=== PATIENT | male | born 1955 | race Two or more races ===

== ENCOUNTER 2019-01-05 18:10 | Inpatient (IN) | payer OTHER ==
[~2019-01-05] VITALS: Ht 167.6 cm; Wt 90.3 kg
[2019-01-05 18:39] LABS: BASOPHILS % 0.6 % (0.0-2.0); EOSINOPHILS % 10.4 % (0.0-5.0); HEMOGLOBIN. 15.5 g/dL (14.0-18.0); LYMPHOCYTES % 34.2 % (20.0-50.0); MEAN CORPUSCULAR HEMOGLOBIN 31.7 pg (28.0-32.0); MEAN CORPUSCULAR VOLUME 94.4 fL (80.0-94.0); MEAN PLATELET VOLUME 9.8 fl (7.4-10.4); MONOCYTES % 7.7 % (2.0-8.0); NEUTROPHILS % 47.1 % (40.0-76.0); PLATELET 246 x1000/uL (130-400); RED BLOOD CELL COUNT 4.88 mill/uL (4.7-6.1); RED CELL DISTRIBUTION WIDTH 14.2 % (11.6-14.6)
[2019-01-05 18:46] LABS: INR 0.9; PROTHROMBIN TIME 9.7 sec (9.6-11.0)
[2019-01-05 18:47] LABS: CHLORIDE 106 mEq/L (98-107)
[2019-01-05 18:51] LABS: ETHANOL BLOOD < 10 mg/dL
[2019-01-05 18:54] LABS: LDL CHOLESTEROL 127 mg/dL (5-100)
[2019-01-05] MEDS ORDERED: ASPIRIN 325MG EC TABLET PO ONE (19:30)
[2019-01-05] MEDS ORDERED: CLOPIDOGREL 75MG TABLET PO ONE (19:30)
[2019-01-05] MEDS ORDERED: IOHEXOL-350 100 ML BOTTLE ONE (23:23)
[2019-01-06 00:18] LABS: CLARITY URINE CLEAR (CLEAR); COLOR URINE YELLOW (YELLOW); KETONES URINE TRACE (NEGATIVE); LEUKOCYTE ESTERASE URINE NEGATIVE (NEGATIVE); NITRITE URINE NEGATIVE (NEGATIVE); OCCULT BLOOD URINE NEGATIVE (NEGATIVE); PROTEIN URINE NEGATIVE (NEGATIVE); SPECIFIC GRAVITY URINE 1.038 (1.005-1.030)
[2019-01-06 00:26] LABS: *AMPHETAMINES SCREEN URINE NEGATIVE (NEGATIVE); *BARBITURATES SCREEN URINE NEGATIVE (NEGATIVE); *BENZODIAZEPINES SCREEN URINE NEGATIVE (NEGATIVE); *COCAINE SCREEN URINE NEGATIVE (NEGATIVE)
[2019-01-06 00:27] LABS: CANNABINOID URINE SCREEN NEGATIVE (NEGATIVE); METHADONE URINE SCREEN NEGATIVE (NEGATIVE); OPIATES URINE SCREEN NEGATIVE (NEGATIVE); PHENCYCLIDINE URINE SCREEN NEGATIVE (NEGATIVE)
[2019-01-06 03:00] VITALS: BP 135/55
[2019-01-06 04:53] VITALS: BP 135/55
[2019-01-06] MEDS ORDERED: DEXTROSE 50% WATER 50ML SYRINGE IV PRN (06:00)
[2019-01-06] MEDS: BLOOD SUGAR DIAGNOSTIC STRIP TEST SCH ×4 (07:40→21:10)
[2019-01-06 08:00] VITALS: BP 132/62
[2019-01-06] MEDS: INSULIN LISPRO 100 UNITS/ML SUBCUT SCH ×4 (08:10→21:10)
[2019-01-06] MEDS ORDERED: ASPIRIN 325MG TABLET PO SCH (09:00)
[2019-01-06 12:00] VITALS: BP 133/62
[2019-01-06] MEDS ORDERED: PRAV20TA57 MT (12:12)
[2019-01-06] MEDS ORDERED: HYDR-4135 MT (12:12)
[2019-01-06] MEDS ORDERED: METF-416 PO (12:12)
[2019-01-06] MEDS ORDERED: LISI-604 PO (12:13)
[2019-01-06] MEDS ORDERED: GLIP5TAB12 PO (12:16)
[2019-01-06] MEDS ORDERED: AMLO10TA4 PO (12:16)
[2019-01-06] MEDS ORDERED: ASPI-1158 MT (12:16)
[2019-01-06] MEDS: HYDRALAZINE HCL 50MG TABLET PO SCH ×2 (15:23→21:09)
[2019-01-06] MEDS: AMLODIPINE 10MG TABLET PO SCH (15:23)
[2019-01-06] MEDS: GLIPIZIDE 5MG TABLET PO SCH (17:37)
[2019-01-06 17:43] LABS: T4 FREE 0.99 ng/dL (0.76-1.46)
[2019-01-06] MEDS: METFORMIN HCL 500MG TABLET PO SCH (18:10)
[2019-01-06 20:00] VITALS: BP 132/47
[2019-01-06 20:14] LABS: FOLIC ACID (FOLATE) SERUM 12.3 ng/mL (>5.38)
[2019-01-06] MEDS: ATORVASTATIN CALCIUM 40MG TABLET PO SCH (21:09)
[2019-01-07] VITALS: BP 128/50
[2019-01-07 04:00] VITALS: BP 150/66
[2019-01-07] MEDS: BLOOD SUGAR DIAGNOSTIC STRIP TEST SCH ×4 (07:40→21:00)
[2019-01-07] MEDS: INSULIN LISPRO 100 UNITS/ML SUBCUT SCH ×4 (08:10→21:00)
[2019-01-07] MEDS: METFORMIN HCL 500MG TABLET PO SCH ×2 (09:09→17:24)
[2019-01-07] MEDS: GLIPIZIDE 5MG TABLET PO SCH ×2 (09:09→17:24)
[2019-01-07] MEDS: CLOPIDOGREL 75MG TABLET PO SCH (09:09)
[2019-01-07] MEDS: AMLODIPINE 10MG TABLET PO SCH (09:10)
[2019-01-07] MEDS: ASPIRIN 81MG EC TABLET PO SCH (09:10)
[2019-01-07] MEDS: LISINOPRIL 20MG TABLET PO SCH (09:11)
[2019-01-07] MEDS: HYDRALAZINE HCL 50MG TABLET PO SCH ×2 (13:52→21:58)
[2019-01-07 17:26] LABS: BASOPHILS % 0.7 % (0.0-2.0); EOSINOPHILS % 10.6 % (0.0-5.0); HEMATOCRIT. 43.6 % (42.0-52.0); HEMOGLOBIN. 14.8 g/dL (14.0-18.0); LYMPHOCYTES % 28.2 % (20.0-50.0); MEAN CORPUSCULAR HEMOGLOBIN 31.8 pg (28.0-32.0); MEAN PLATELET VOLUME 9.8 fl (7.4-10.4); MONOCYTES % 7.5 % (2.0-8.0); PLATELET 222 x1000/uL (130-400); RED BLOOD CELL COUNT 4.64 mill/uL (4.7-6.1); RED CELL DISTRIBUTION WIDTH 13.7 % (11.6-14.6)
[2019-01-07 17:34] LABS: CHLORIDE 107 mEq/L (98-107)
[2019-01-07 20:00] VITALS: BP 96/36
[2019-01-07] MEDS: ATORVASTATIN CALCIUM 40MG TABLET PO SCH (21:56)
[2019-01-08] VITALS: BP 99/45
[2019-01-08] MEDS: HYDRALAZINE HCL 50MG TABLET PO SCH ×2 (06:42→14:00)
[2019-01-08] MEDS: BLOOD SUGAR DIAGNOSTIC STRIP TEST SCH ×2 (07:40→12:40)
[2019-01-08 08:00] VITALS: BP 115/39
[2019-01-08] MEDS: INSULIN LISPRO 100 UNITS/ML SUBCUT SCH ×2 (08:10→13:10)
[2019-01-08] MEDS: LISINOPRIL 20MG TABLET PO SCH (08:10)
[2019-01-08] MEDS: AMLODIPINE 10MG TABLET PO SCH (09:00)
[2019-01-08] MEDS: METFORMIN HCL 500MG TABLET PO SCH (10:25)
[2019-01-08] MEDS: CLOPIDOGREL 75MG TABLET PO SCH (10:25)
[2019-01-08] MEDS: GLIPIZIDE 5MG TABLET PO SCH (10:25)
[2019-01-08] MEDS: ASPIRIN 81MG EC TABLET PO SCH (10:26)
[2019-01-08 12:53] LABS: BASOPHILS % 0.8 % (0.0-2.0); EOSINOPHILS % 10.5 % (0.0-5.0); HEMATOCRIT. 45.4 % (42.0-52.0); HEMOGLOBIN. 15.2 g/dL (14.0-18.0); LYMPHOCYTES % 30.7 % (20.0-50.0); MEAN CORPUSCULAR HEMOGLOBIN 31.4 pg (28.0-32.0); MEAN CORPUSCULAR VOLUME 93.9 fL (80.0-94.0); MEAN PLATELET VOLUME 9.9 fl (7.4-10.4); MONOCYTES % 5.5 % (2.0-8.0); NEUTROPHILS % 52.5 % (40.0-76.0); PLATELET 227 x1000/uL (130-400); RED BLOOD CELL COUNT 4.84 mill/uL (4.7-6.1); RED CELL DISTRIBUTION WIDTH 13.5 % (11.6-14.6)
[2019-01-08 13:31] LABS: HEPATITIS B SURFACE ANTIGEN NEGATIVE
[2019-01-08 13:41] LABS: CHLORIDE 106 mEq/L (98-107)
[2019-01-08 14:01] LABS: HEPATITIS A AB IGM NEGATIVE (NEGATIVE)
[2019-01-09 07:12] LABS: HIV SCREEN 4G Non Reactive (Non Reactive)
== END 2019-01-08 18:53 | disposition left against medical advice (07) | DRG 45 ==
LOC: ER 18:10 → ENRESERV 01-06 02:10 → ER 01-06 03:17 → 7WST 01-06 04:11
PROVIDERS: ADMIT Internal Medicine; ATTEND Internal Medicine
DX: I63.81 Other cerebral infarction due to occlusion or stenosis of small artery (principal); I66.02 Occlusion and stenosis of left middle cerebral artery; I69.354 Hemiplegia and hemiparesis following cerebral infarction affecting left non-dominant side; R13.10 Dysphagia, unspecified; D72.829 Elevated white blood cell count, unspecified; E11.9 Type 2 diabetes mellitus without complications; E78.5 Hyperlipidemia, unspecified; F17.200 Nicotine dependence, unspecified, uncomplicated; R74.0 Nonspecific elevation of levels of transaminase and lactic acid dehydrogenase [LDH]; I66.22 Occlusion and stenosis of left posterior cerebral artery; Z53.29 Procedure and treatment not carried out because of patient's decision for other reasons; I65.21 Occlusion and stenosis of right carotid artery; I10 Essential (primary) hypertension; E78.00 Pure hypercholesterolemia, unspecified; Z79.82 Long term (current) use of aspirin; Z82.49 Family history of ischemic heart disease and other diseases of the circulatory system; Z83.3 Family history of diabetes mellitus; Z79.84 Long term (current) use of oral hypoglycemic drugs
CPT/HCPCS: 36415; 70496; 70498; 70551; 71045; 80048; 80061; 80076; 80305; 80320; 81003; 82607; 82746; 82962; 83036; 83721; 84439; 84443; 84481; 84484; 86705; 86709; 86803; 87340; 87389; 92610; 93005; 93306; 93880; 97112; 97116; 97162; 97166; 99291; J1815; Q9967; G0480